=== PATIENT | male | born 1985 ===

== ENCOUNTER 2018-07-24 06:33 | Emergency (ER) | payer OTHER ==
[2018-07-24 06:42] VITALS: BMI 25.0
[2018-07-24 06:49] VITALS: RESP 18; TEMP 97.6; O2SAT 100
--- NOTE | 2018-07-24 06:50 | ED PDOC ---
Arrival/HPI - General Chief Complaint: ENT Problem Time Seen by Provider: 07/24/18 06:46 Historian: Patient - History of Present Illness Narrative History of Present Illness (Text): 07/24/18 06:47 Patient to ED no significant past medical history with c/o right ear discomfort.No history of any fever.No history of any swimming or water to the canal. Past Medical History - Provider Review Nursing Documentation Reviewed: Yes - Travel History Have you recently traveled outside [place] w/in the past 3 mons?: No - Psychiatric Hx Substance Use: No - Anesthesia Hx Anesthesia: No Hx Anesthesia Reactions: No Hx Malignant Hyperthermia: No Family/Social History - Physician Review Nursing Documentation Reviewed: Yes Family/Social History: No Known Family HX Smoking Status: Never Smoked Hx Alcohol Use: No Hx Substance Use: No Allergies/Home Meds Allergies/Adverse Reactions: Allergies No Known Allergies Allergy (Verified 07/24/18 06:41) Review of Systems - Review of Systems Constitutional: Normal Eyes: Normal ENT: Other (earache) Respiratory: Normal Cardiovascular: Normal Gastrointestinal: Normal Genitourinary Male: Normal Musculoskeletal: Normal Skin: Normal Neurological: Normal Endocrine: Normal Hemo/Lymphatic: Normal Psychiatric: Normal Physical Exam Temperature: Afebrile Blood Pressure: Normal Pulse: Regular Respiratory Rate: Normal Appearance: Positive for: Well-Appearing, Non-Toxic, Comfortable Pain Distress: None Mental Status: Positive for: Alert and Oriented X 3 - Systems Exam Head: Present: Atraumatic, Normocephalic Pupils: Present: PERRL Extroacular Muscles: Present: EOMI Conjunctiva: Present: Normal Ears: Present: Normal Canal, Other (erythema right TM) Mouth: Present: Moist Mucous Membranes Pharnyx: Present: Normal Nose (External): Present: Atraumatic Nose (Internal): Present: Normal Inspection Respiratory/Chest: Present: Clear to Auscultation, Good Air Exchange. No: Respiratory Distress, Accessory Muscle Use Cardiovascular: Present: Regular Rate and Rhythm, Normal S1, S2. No: Murmurs Abdomen: No: Tenderness, Distention, Peritoneal Signs Neurological: Present: GCS=15, CN II-XII Intact, Speech Normal, Motor Func Grossly Intact, Normal Sensory Function Disposition/Present on Arrival - Present on Arrival Any Indicators Present on Arrival: No History of DVT/PE: No History of Uncontrolled Diabetes: No Urinary Catheter: No History of Decub. Ulcer: No History Surgical Site Infection Following: None - Disposition Have Diagnosis and Disposition been Completed?: Yes Diagnosis: Otitis media Disposition: HOME/ ROUTINE Disposition Time: 06:55 Patient Plan: Discharge Condition: GOOD Discharge Instructions (ExitCare): Ear Infections (Otitis Media) (DC) Additional Instructions: Take meds as prescribed/follow up with your doctor this week Prescriptions: Naproxen [Naprosyn] 500 mg PO BID PRN #12 tab PRN Reason: Pain Azithromycin [Zithromax] 250 mg PO DAILY #4 tab
[2018-07-24 07:11] VITALS: BP 115/78; PULSE 75
== END 2018-07-24 07:05 | disposition home or self-care (01) ==
LOC: ED 06:33
DX: H66.91 Otitis media, unspecified, right ear (principal)